=== PATIENT | female | born 1965 | race Caucasian/White ===

== ENCOUNTER 2018-09-27 07:27 | Day surgery (SDC) | payer BC ==
[2018-09-27] MEDS ORDERED: LIDOCAINE 2% MDV (20MG/ML) 20ML VIAL IV ONE (07:28)
[2018-09-27] MEDS ORDERED: PROPOFOL 10 MG/ML VIAL IV ONE (07:28)
--- NOTE | 2018-09-28 07:21 | Operative Note ---
DATE OF SURGERY: 09/27/2018 OPERATION: Screening COLONOSCOPY. PREOPERATIVE DIAGNOSIS: Family history of colon cancer in first-degree relative. POSTOPERATIVE DIAGNOSIS: Fair prep. Otherwise normal exam. PROCEDURE: After informed consent was obtained from the patient, the patient was placed in the left lateral decubitus position in the endoscopy suite, sedated and monitored by the department of anesthesia. Digital rectal exam was unremarkable. A well-lubricated ARE825 colonoscope was inserted into the rectum and advanced to the cecum. The cecum, cecal bulb, ileocecal valve, appendiceal orifice, ascending colon, transverse colon, descending colon, sigmoid colon, and rectum were free of inflammatory changes, mass lesions, or polyp. There was a fair quality prep. Numerous areas were rinsed and fluid and debris removed. J-turn views and forward views of the rectum and anorectum were unremarkable. The endoscope was straightened, the rectal ampulla deflated, and the endoscope was removed. RECOMMENDATIONS: The patient should resume her medications and diet. I would recommend a repeat exam in 3 years based on the prep quality. As always, thank you for allowing me to participate in the healthcare of your patients. CC: DO ANA Iqbal
== END 2018-09-27 08:52 | disposition home or self-care (01) ==
LOC: HOP 07:27
PROVIDERS: ATTEND Internal Medicine Gastroenterology
DX: Z12.11 Encounter for screening for malignant neoplasm of colon (principal); Z80.0 Family history of malignant neoplasm of digestive organs; I10 Essential (primary) hypertension; E78.00 Pure hypercholesterolemia, unspecified
CPT/HCPCS: 00812; G0105; 81025